=== PATIENT | female | born 1955 | race Caucasian/White ===

== ENCOUNTER 2019-12-16 00:08 | Emergency (ER) | payer OTHER ==
[2019-12-16 00:45] LABS: Bilirubin Negative (Negative); Blood, Urine Negative (Negative); Clarity Clear (Clear); Glucose, Urine (Dipstick) 500 mg/dL (Negative); Leukocyte Negative (Negative); Nitrite Positive (Negative); Protein, Urine (Dipstick) Negative (Neg-Trace); Urobilinogen 0.2 mg/dL (Less than 2)
[2019-12-16 00:49] LABS: Bacteria/HPF 4+ HPF (None Seen); RBC/HPF 0-3 HPF (0-3); WBC/HPF Greater than 50 HPF (0-3)
[2019-12-16 01:00] LABS: #Basophils 0.1 thou/uL (0.0-0.2); #Eosinphils 0.1 thou/uL (0.0-0.7); #Lymphocytes 2.1 thou/uL (1.20-3.40); #Neutrophils 9.1 thou/uL (1.40-6.50); %Eosinophils 0.8 % (0.0-10.0); %Lymphocytes 17.1 % (21.0-51.0); %Monocytes 8.3 % (0.0-10.0); %Neutrophils 72.8 % (42.0-75.0); Mean Corpuscular HGB CONC 30.1 g/dL (32.0-36.0); Mean Corpuscular Hemoglobin 28.4 pg (27.0-31.0); Mean Corpuscular Volume 94.5 fL (78.0-98.0); Mean Platelet Volume 10.3 fL (7.4-10.4); Platelet Count 299 thou/uL (130-400); RBC Distribution Width 12.5 % (11.5-14.5); Red Blood Cell (RBC) Count 4.94 mill/uL (4.20-5.40); White Blood Cell (WBC) Count 12.5 thou/uL (4.8-10.8)
[2019-12-16 01:12] LABS: ALT (SGPT) 23 U/L (8-55); AST (SGOT) 14 U/L (5-34); Albumin 4.2 g/dL (3.4-4.8); Alkaline Phosphatase 102 U/L (40-110); Anion Gap 17 mmol/L (10-20); BUN (Urea Nitrogen) 11 mg/dL (9.8-20.1); Bilirubin, Total 0.5 mg/dL (0.2-1.2); Calc. Creatinine Clearance 0 mL/min (70-130); Calcium 9.7 mg/dL (7.8-10.44); Carbon Dioxide 25 mmol/L (23-31); Chloride 96 mmol/L (98-107); Estimated GFR-MDRD 51; Globulin 3.2 g/dL (2.4-3.5); Glucose 447 mg/dL (80-115); Lipase 19 U/L (8-78); Potassium 3.8 mmol/L (3.5-5.1); Protein, Total 7.4 g/dL (6.0-8.3); Sodium 134 mmol/L (136-145)
[2019-12-16] MEDS ORDERED: Sodium Chloride 0.9% 1,000 ML ONE (01:35)
[2019-12-16] MEDS ORDERED: Ketorolac Tromethamine 30 MG/ML VIAL ONE (01:35)
[2019-12-16] MEDS ORDERED: Insulin Regular 300 UNITS/3 ML VIAL ONE (01:36)
[2019-12-16] MEDS ORDERED: Cefepime 2 GM VIAL ONE (02:26)
--- NOTE | 2019-12-16 07:16 | RAD ---
RADIOGRAPH CHEST 2 VIEWS: DATE: 12/16/2019 12:39 AM HISTORY: 64-year-old female with right basilar chest pain FINDINGS: The cardiomediastinal silhouette and hilar shadows are within normal limits for age. There is no pleu ral effusion or pneumothorax. Nonspecific mild patchy-streaky densities at posterior bases of bilateral lower lobes visible only on lateral view. Perhaps they represent subsegmental atelectasis. Early pneumonia is less likely but not excluded. No pulmonary edema. IMPRESSION: Nonspecific mild pulmonary densities at posterior lower lobe bases, right greater than left.
--- NOTE | 2019-12-16 08:34 | CT ---
PRELIMINARY REPORT/[facility]/EMERGENCY AFTER HOURS PROCEDURE: CT Abdomen and Pelvis with Intravenous Contrast HISTORY: Right side epigastric pain since 5 days ago, worse tonight. sob COMPARISON: None provided. FINDINGS: LUNG BASES: Minimal right pleural effusion. Dependent atelectasis bilaterally. Mildly thickened dist al esophagus. LIVER: Diffuse decrease in parenchymal density. GALLBLADDER/BILE DUCTS: Unremarkable. No calcified stone. No ductal dilation. PANCREAS: Unremarkable. SPLEEN: Unremarkable. ADRENAL GLANDS: Unremarkable. KIDNEYS: Partially duplicated collecting systems bilaterally. No hydronephrosis or hydroureter. Norm al symmetric renal nephrograms bilaterally. STOMACH AND BOWEL: Moderate sized hiatal hernia. No obstruction or perforation. No wall thickening. Colonic diverticulosis. No CT evidence of colitis or acute diverticulitis. APPENDIX: No CT evidence for appendicitis. RETRO/PERITONEUM: No free fluid. No free air. LYMPH NODES: No lymphadenopathy. PELVIC ORGANS: Unremarkable. VASCULATURE: No aortic aneurysm. Mild calcified atherosclerosis. BODY WALL: Tiny fat containing umbilical hernia. BONES: Mildly expansile right superior pubic ramus lesion with stippled calcification and internal harsh cencies, suggestive of an enchondroma. IMPRESSION: Minimal right pleural effusion. Hiatal hernia with mildly thickened distal esophagus, query reflux esophagitis. Diffuse hepatic steatosis. Colonic diverticulosis without signs of diverticulitis ELECTRONICALLY SIGNED BY: Nancy Gray M.D. Dec 16, 2019 2:50:14 AM P D DRIVER This report is intended for review by the ordering physician only, in accordance of law. If you recei ve this report in error, please call [facility] at [phone]. FINAL REPORT EMERGENCY AFTER HOURS CT ABDOMEN AND PELVIS WITH IV CONTRAST: HISTORY: Right-sided abdominal pain and epigastric pain for 5 days. Patient is greater tonight with associated shortness of breath. COMPARISON: None. IMPRESSION: 1. Tiny right pleural effusion with evidence of bibasilar atelectasis. 2. Hiatal hernia. The distal esophagus does appear mildly thickened. This may be related to redundan cy secondary to hiatal hernia. However, esophagitis versus other etiology cannot be entirely excluded . 3. Colonic diverticulosis. 4. Diminished attenuation of the liver. Precontrast imaging was not obtained, but findings are likel y attributable to fatty infiltration. 5. Expansile lesion involving the right pubic bone and superior right pubic ramus with stippled calc ifications and internal lucency. This has the appearance of a lesion of low biological activity. This expansile lesion was also seen in this region on a prior IVP examination on 10/15/2003 and is simila r in size given differences in modality. Findings are in agreement with the preliminary report by [facility]. POS: [facility]
[2019-12-16] MEDS ORDERED: Iopamidol 370 76% 100 ML VIAL ONE (09:50)
== END 2019-12-16 03:20 | disposition short-term general hospital (02) ==
LOC: MADERS 00:08
DX: A41.9 Sepsis, unspecified organism (principal); J18.9 Pneumonia, unspecified organism; N39.0 Urinary tract infection, site not specified; E11.65 Type 2 diabetes mellitus with hyperglycemia
CPT/HCPCS: 36415; 36416; 71046; 74177; 80053; 81003; 81015; 83605; 83690; 84443; 84484; 85025; 87040; 87077; 87086; 87186; 93005; 94760; 96361; 96365; 96368; 96375; J0692; J1815; J1885; J1956; J7050; Q9967

== ENCOUNTER 2020-11-25 15:24 | Emergency (ER) | payer OTHER ==
[2020-11-25] MEDS ORDERED: Lidocaine 1% 20 ML MDV ONE (16:11)
[2020-11-25] MEDS ORDERED: HYDROcodone/Acetaminophen 5/325 mg Tablet ONE (17:08)
[2020-11-25] MEDS ORDERED: Ibuprofen 800 MG TAB ONE (17:08)
[2020-11-25] MEDS ORDERED: Clindamycin 150 MG CAP ONE (17:08)
== END 2020-11-25 17:34 | disposition home or self-care (01) ==
LOC: MADERS 15:24
DX: N75.1 Abscess of Bartholin's gland (principal); K58.9 Irritable bowel syndrome, unspecified; Z79.899 Other long term (current) drug therapy; Z79.82 Long term (current) use of aspirin
CPT/HCPCS: 56420